=== PATIENT | male | born 1980 | race Asian ===

== ENCOUNTER 2017-10-28 12:34 | Day surgery (SDC) | payer MEDICAID ==
[~2017-10-28] VITALS: Ht 165.1 cm; Wt 66.8 kg
[~2017-10-28 12:34] MED LIST: DOCU-28 PO; POLY119P2 PO; SENN8.6T19 PO
[2017-10-28] MEDS ORDERED: MIDAZolam 5mg/5ml vial ONE (12:40)
[2017-10-28] MEDS ORDERED: fentaNYL/PF 50MCG/1 ML 2ML syringe ONE (12:40)
[2017-10-28 12:50] VITALS: BP 122/72
[2017-10-28] MEDS ORDERED: CYCL-1 PO (13:05)
[2017-10-28] MEDS ORDERED: GABA-532 PO (13:07)
[2017-10-28 15:02] VITALS: BP 114/57
[2017-10-28 15:12] VITALS: BP 112/73
[2017-10-28 15:22] VITALS: BP 111/55
== END 2017-10-28 15:50 | disposition home or self-care (01) ==
LOC: GI LAB 12:34
PROVIDERS: ATTEND Internal Medicine Gastroenterology
DX: K92.1 Melena (principal); K59.00 Constipation, unspecified; K21.9 Gastro-esophageal reflux disease without esophagitis; Z98.0 Intestinal bypass and anastomosis status; Z90.49 Acquired absence of other specified parts of digestive tract; Z85.038 Personal history of other malignant neoplasm of large intestine; Z79.899 Other long term (current) drug therapy
CPT/HCPCS: 45378; 99152; J2250; J3010; J7030; A4620; G0500